=== PATIENT | female | born 1970 | race Caucasian/White ===

== ENCOUNTER → 2021-01-16 08:58 | Outpatient (CLI) | payer BC ==
--- NOTE | 2021-01-20 09:26 | ST ---
PATIENT:ERNESTO ANGUIANO MEDICAL RECORD: [id number] SEX: F LOCATION:[facility] ORDER #: ADMISSION DATE: 01/16/21 AGE OF PATIENT: 50 REFERRING PHYSICIAN: INTERPRETING PHYSICIAN: BARBI RANDOLPH MD DATE OF SERVICE: 01/16/2021 NUCLEAR STRESS TEST GATED: Gated is normal. Normal wall motion. Normal EF. Calculated EF 71%. SPECT IMAGING: SPECT imaging was performed. 1. Short axis view: Short axis view shows good uptake along the anterior wall, lateral wall, and inferior wall. 2. Horizontal axis: Horizontal axis confirms good uptake along the anterior wall and inferior wall. 3. Vertical axis: Vertical axis shows good uptake along the lateral wall and septum. FINAL IMPRESSION: 1. Normal gated, normal wall motion, normal EF 71%. 2. Normal SPECT imaging. FINAL IMPRESSION: The scan is felt very low risk for any significant ongoing myocardial ischemia or previous myocardial infarction. LV function remains normal. Continued risk factor modification is recommended. TRANSINT:[id number] Voice Confirmation ID: [id number] DOCUMENT ID: [id number] BARBI RANDOLPH MD at 0926 CC: [id number] DICTATION DATE: 01/17/21 0857 MAJOR ACCOUNT REPRESENTATIVE: 01/18/21 0112 DEP CLI 01/16/21 [id number] [place] [id number]
== END | disposition home or self-care (01) ==
LOC: D.HCCECHO 08:58
PROVIDERS: ATTEND Internal Medicine Interventional Cardiology
DX: I10 Essential (primary) hypertension (principal); I20.9 Angina pectoris, unspecified